=== PATIENT | female | born 1980 | race Caucasian/White ===

== ENCOUNTER 2018-02-22 15:09 | Emergency (ER) | payer OTHER ==
[~2018-02-22] VITALS: Ht 172.7 cm; Wt 68.0 kg
[2018-02-22] MEDS ORDERED: AMPDEX15CR PO (15:34)
[2018-02-22] MEDS ORDERED: LEVSOD50 PO (15:34)
== END 2018-02-22 16:06 | disposition home or self-care (01) ==
LOC: ER 15:09
DX: S80.02XA Contusion of left knee, initial encounter (principal); W07.XXXA Fall from chair, initial encounter; Z79.899 Other long term (current) drug therapy
CPT/HCPCS: 93971; 99283